=== PATIENT | female | born 1960 | race Caucasian/White ===

== ENCOUNTER 2016-08-12 13:39 | Emergency (ER) | payer OTHER ==
[2016-08-12 14:02] VITALS: BP 153/94
--- NOTE | 2016-08-12 14:18 | UC ---
Abdominal Pain Female HPI - HPI Summary HPI Summary: LOWER ABDOMINAL PAINX 2 DAYS , FEVER , FATIGUE, CHILLS, - History of Current Complaint Chief Complaint: UCGU Stated Complaint: URINARY COMPLAINT Time Seen by Provider: 08/12/16 13:50 Hx Obtained From: Patient Hx Last Menstrual Period: 5 years Onset/Duration: Gradual Onset, Lasting Days - 2, Still Present Timing: Constant Severity Initially: Moderate Severity Currently: Moderate Location: Suprapubic Radiates: Yes Radiates to: Back Character: Aching, Cramping Aggravating Factor(s): Nothing Alleviating Factor(s): Nothing Associated Signs and Symptoms: Positive: Fever, Back Pain, Decreased Appetite. Negative: Cough, Chest Pain, Dizzy, Constipation, Blood in Stool, Urinary Symptoms, Vaginal Bleeding, Vaginal Discharge, Nausea, Vomiting, Diarrhea Allergies/Adverse Reactions: Allergies Allergy/AdvReac Type Severity Reaction Status Date / Time Ceftriaxone [From Rocephin] Allergy Severe Anaphylatic Verified 08/12/16 14:02 Shock Glatiramer [From Copaxone] Allergy Anaphylatic Verified 08/12/16 14:02 Shock Mannitol [From Copaxone] Allergy Anaphylatic Verified 08/12/16 14:02 Shock NSAIDs AdvReac Severe CAN'T TAKE Verified 08/12/16 14:02 BECAUSE OF ULCERATIVE COLITIS Penicillins AdvReac Anaphylatic Verified 08/12/16 14:02 Shock [facility] Allergy Rash Uncoded 08/12/16 14:02 Home Medications: Home Medications Acetaminophen [Tylenol 8 Hour Arthritis] 1,300 mg PO ONCE PRN 08/12/16 [History Confirmed 08/12/16] Dronabinol [Marinol] 2.5 mg PO ONCE PRN 08/12/16 [History Confirmed 08/12/16] PMH/Surg Hx/FS Hx/Imm Hx Endocrine History Of: 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 Cardiovascular History Of: Denies: Hypertension, Pacemaker/ICD GI/ History Of: Reports: Gastrointestinal Bleed - due to UC Denies: Renal Disease - Surgical History Surgical History: Yes Surgery Procedure, Year, and Place: sinus surgery 2008; gallbladder 2004; lymph node bx 2007; [place] - Family History Known Family History: Positive: None, Other - [place] Lupus - Social History Alcohol Use: None Substance Use Type: None Substance Use Comment - Amount & Last Used: Butrans, Oxycodone and adderall Smoking Status (MU): Former Smoker Type: Cigarettes When Did the Patient Quit Smoking/Using Tobacco: As a teenager Review of Systems Constitutional: Fever, Chills, Fatigue Skin: Negative Eyes: Negative ENT: Negative Respiratory: Negative Cardiovascular: Negative Gastrointestinal: Abdominal Pain Genitourinary: Negative All Other Systems Reviewed And Are Negative: Yes Physical Exam Triage Information Reviewed: Yes Appearance: Well-Appearing, No Pain Distress, Well-Nourished Vital Signs: Initial Vital Signs Temp 98.4 F 08/12/16 13:49 Pulse 90 08/12/16 13:49 Resp 12 08/12/16 13:49 BP 153/94 08/12/16 13:49 Vital Signs Reviewed: Yes Eyes: Positive: Conjunctiva Clear ENT: Positive: Normal ENT inspection, Hearing grossly normal, Pharynx normal Neck: Positive: Supple, Nontender, No Lymphadenopathy Respiratory: Positive: Chest non-tender, Lungs clear, Normal breath sounds Cardiovascular: Positive: RRR, No Murmur, Pulses Normal Abdominal Exam: Normal Abdomen Description: Positive: Nontender, Soft, CVA Tenderness (L). Negative: CVA Tenderness (R), Distended, Guarding Bowel Sounds: Positive: Present Abd Pain Female Course/Dx - Differential Dx/Diagnosis Provider Diagnoses: LOWER ABDOMINAL PAIN Discharge - Discharge Plan Condition: Stable Disposition: HOME Prescriptions: Ciprofloxacin TAB* [Cipro Tab*] 500 mg PO BID #20 tab Patient Education Materials: Urinary Tract Infection in Women (ED) Referrals: Non Staff,Doctor [Primary Care Provider] -
== END 2016-08-12 14:40 | disposition home or self-care (01) ==
LOC: UCCORT 13:39
DX: R10.30 Lower abdominal pain, unspecified (principal); R50.9 Fever, unspecified; R53.83 Other fatigue; Z90.49 Acquired absence of other specified parts of digestive tract; Z88.6 Allergy status to analgesic agent; Z88.1 Allergy status to other antibiotic agents; Z88.8 Allergy status to other drugs, medicaments and biological substances; Z88.0 Allergy status to penicillin; Z87.891 Personal history of nicotine dependence
CPT/HCPCS: 87086; 99212; G0463

== ENCOUNTER 2017-07-24 14:08 | Emergency (ER) | payer OTHER ==
--- NOTE | 2017-07-24 14:10 | UC ---
Neck Pain HPI - HPI Summary HPI Summary: 57 year old female presents with neck and back pain. - History of Current Complaint Stated Complaint: BACK AND NECK PAIN Time Seen by Provider: 07/24/17 14:10 Hx Last Menstrual Period: 5 years - Allergies/Home Medications Allergies/Adverse Reactions: Allergies Allergy/AdvReac Type Severity Reaction Status Date / Time Ceftriaxone [From Rocephin] Allergy Severe Anaphylatic Verified 01/20/17 13:59 Shock Glatiramer [From Copaxone] Allergy Anaphylatic Verified 01/20/17 13:59 Shock Mannitol [From Copaxone] Allergy Anaphylatic Verified 01/20/17 13:59 Shock NSAIDs AdvReac Severe CAN'T TAKE Verified 01/20/17 13:59 BECAUSE OF ULCERATIVE COLITIS Penicillins AdvReac Anaphylatic Verified 01/20/17 13:59 Shock [facility] Allergy Rash Uncoded 01/07/17 07:05 PMH/Surg Hx/FS Hx/Imm Hx - Surgical History Surgical History: Yes Surgery Procedure, Year, and Place: sinus surgery 2008; gallbladder 2004; lymph node bx 2007; tonsillectomy 10/2012-[place] - Family History Known Family History: Positive: None, Other - [place] Lupus - Social History Alcohol Use: None Substance Use Type: None Substance Use Comment - Amount & Last Used: Butrans, Oxycodone and adderall Smoking Status (MU): Former Smoker Type: Cigarettes When Did the Patient Quit Smoking/Using Tobacco: As a teenager Review Of Systems Constitutional: Positive: Negative Skin: Positive: Negative Eyes: Positive: Negative ENT: Positive: Negative Respiratory: Positive: Negative Cardiovascular: Positive: Negative Gastrointestinal: Positive: Negative Genitourinary: Positive: Negative Musculoskeletal: Positive: Other: - low back and neck pain All Other Systems Reviewed And Are Negative: Yes Physical Exam Triage Information Reviewed: Yes Vital Signs Reviewed: Yes Eye Exam: Normal ENT Exam: Normal Dental Exam: Normal Neck exam: Normal Neck: Positive: 1 Respiratory Exam: Normal Cardiovascular Exam: Normal Abdominal Exam: Normal Musculoskeletal: Positive: Other: - low back pain neck pain Neurological Exam: Normal Psychological Exam: Normal Skin Exam: Normal Neck Pain Course/Dx - Differential Dx/Diagnosis Provider Diagnoses: low back pain. neck pain Discharge - Discharge Plan Condition: Stable Disposition: HOME Referrals: Peter Atkinson [Primary Care Provider] -
[2017-07-24 14:24] VITALS: BP 139/83
--- NOTE | 2017-07-27 08:34 | UC ---
Progress - Progress Note Progress Note: please call and inform pt of neg urine cx. ok to stop abx.
== END 2017-07-24 14:53 | disposition home or self-care (01) ==
LOC: UCCORT 14:08
DX: M54.5 Low back pain (principal); M54.2 Cervicalgia; Z88.3 Allergy status to other anti-infective agents; Z88.0 Allergy status to penicillin; Z87.891 Personal history of nicotine dependence
CPT/HCPCS: 81003; 87086; 99212; G0463

== ENCOUNTER 2019-07-02 10:39 | Emergency (ER) | payer BC ==
[2019-07-02 11:04] VITALS: BP 133/74
--- NOTE | 2019-07-02 13:42 | UC ---
Head Injury HPI - HPI Summary HPI Summary: Pt presents with c/o worsening bruising around left eye, SANTOS< nausea, sleep disturbances, and "strange dreams" s/p getting hit in face/head by piece of wood when pt was splitting wood on 06/28/19. Pt also reports that she had a bloody nose last night. She has recent moved into a house with a wood stove- 1 week ago. - History Of Current Complaint Chief Complaint: UCHeadInjury Stated Complaint: HEAD INJURY Time Seen by Provider: 07/02/19 12:23 Hx Obtained From: Patient Hx Last Menstrual Period: 5 years ?: No Onset/Duration: Sudden Onset, Worse Since - onset Severity Currently: Mild Severity Initially: Moderate Pain Intensity: 7 Character: Dull, Throbbing, Pressure Aggravating Factor(s): Other - movement and change in position Alleviating Factor(s): Nothing Associated Signs And Symptoms: Positive: Epistaxis, Nausea - Risk Factors SDH Risk Factor: Recent Trauma - Allergies/Home Medications Allergies/Adverse Reactions: Allergies Allergy/AdvReac Type Severity Reaction Status Date / Time ceftriaxone Allergy Anaphylatic Verified 07/02/19 11:09 Shock glatiramer (copolymer 1) Allergy Anaphylatic Verified 07/02/19 11:09 [From Copaxone] Shock NSAIDS (Non-Steroidal Allergy See Comment Verified 07/02/19 11:09 Anti-Inflamma Penicillins Allergy Anaphylatic Verified 07/02/19 11:09 Shock [facility] Allergy Rash Uncoded 07/02/19 11:10 Home Medications: Home Medications Acetaminophen [Acetaminophen Extra Strength] 1,500 mg PO BID PRN 07/02/19 [ History Confirmed 07/02/19] Bp Medication 1 tab PO DAILY 07/02/19 [History] Buprenorphine 5 MCG PATCH(NF) [Butrans 5 MCG PATCH(NF)] 7.5 mcg TRANSDERM Q7D [History Confirmed 07/02/19] Gabapentin CAP(*) [Neurontin 300 CAP(*)] 1,200 mg PO BEDTIME 07/02/19 [History Confirmed 07/02/19] Hormone Replacement 1 tab PO Q48HR 07/02/19 [History] Metoprolol Tartrate TAB* [Lopressor TAB*] 25 mg PO DAILY 07/02/19 [History Confirmed 07/02/19] Nortriptyline CAP* [Pamelor CAP*] 10 mg PO BEDTIME 07/02/19 [History Confirmed 07/02/19] PMH/Surg Hx/FS Hx/Imm Hx Previously Healthy: Yes Cardiovascular History: Cardiac Disease, Hypertension Psychological History: Anxiety, Depression - Surgical History Surgical History: Yes Surgery Procedure, Year, and Place: sinus surgery 2008; gallbladder 2004; lymph node bx 2007; tonsillectomy 10/2012-[place]. COLON BLEED-CLIPS 11/2017 - Family History Known Family History: Positive: None, Other - [place] Lupus - Social History Occupation: Disabled Lives: With Family Alcohol Use: None Substance Use Type: None Substance Use Comment - Amount & Last Used: Butrans, Oxycodone and adderall Smoking Status (MU): Former Smoker Type: Cigarettes Have You Smoked in the Last Year: No When Did the Patient Quit Smoking/Using Tobacco: As a teenager - Immunization History Most Recent Influenza Vaccination: no Review of Systems All Other Systems Reviewed And Are Negative: Yes Constitutional: Positive: Negative Skin: Positive: Bruising - around left eye Eyes: Positive: Negative ENT: Positive: Epistaxis - last night Respiratory: Positive: Negative Cardiovascular: Positive: Negative Gastrointestinal: Positive: Negative Genitourinary: Positive: Negative Motor: Positive: Negative Neurovascular: Positive: Negative Musculoskeletal: Positive: Negative Neurological: Positive: Headache Psychological: Positive: Negative Is Patient Immunocompromised?: No Physical Exam Triage Information Reviewed: Yes Appearance: Pain Distress Vital Signs: Initial Vital Signs Temp 97.9 F 07/02/19 10:57 Pulse 61 07/02/19 10:57 Resp 17 07/02/19 10:57 BP 133/74 07/02/19 10:57 Pulse Ox 100 07/02/19 10:57 Vital Signs Reviewed: Yes Eye Exam: Other - ecchymosis around left eye ENT Exam: Normal Dental Exam: Normal Neck exam: Normal Respiratory Exam: Normal Respiratory: Positive: No respiratory distress Musculoskeletal Exam: Normal Neurological Exam: Normal Neurological: Positive: Alert, Muscle Tone Normal Psychological Exam: Normal Skin Exam: Other - bruising around left eye Diagnostics - Radiology No standard instances Radiology Interpretation Completed By: Radiologist - negative for fracture and active disease, reviewed. Head Injury Course/Dx - Differential Dx/Diagnosis Differential Diagnosis/HQI/PQRI: Concussion Without LOC, Contusion, Hematoma, Orbital Fracture Provider Diagnosis: Facial contusion Discharge ED - Sign-Out/Discharge Documenting (check all that apply): Patient Departure All imaging exams completed and their final reports reviewed: Yes - Discharge Plan Condition: Stable Disposition: HOME Patient Education Materials: Acute Headache (ED), Facial Contusion (ED) Referrals: [facility] [place] [facility] [Outside] - If Needed No Primary Care Phys,NOPCP [Primary Care Provider] - Additional Instructions: Please follow up with your PCP as needed. If your symptoms do not improve or worsen, please seek medical attention immediately at the closest emergency room. - Billing Disposition and Condition Condition: STABLE Disposition: Home
== END 2019-07-02 13:58 | disposition home or self-care (01) ==
LOC: UCCORT 10:39
DX: S00.12XA Contusion of left eyelid and periocular area, initial encounter (principal); I10 Essential (primary) hypertension; F41.9 Anxiety disorder, unspecified; F32.9 Major depressive disorder, single episode, unspecified; Z88.6 Allergy status to analgesic agent; Z91.09 Other allergy status, other than to drugs and biological substances; Z88.8 Allergy status to other drugs, medicaments and biological substances; Z79.899 Other long term (current) drug therapy; Z87.891 Personal history of nicotine dependence; Z88.0 Allergy status to penicillin; Z82.49 Family history of ischemic heart disease and other diseases of the circulatory system; W22.8XXA Striking against or struck by other objects, initial encounter; Y93.89 Activity, other specified; Y92.9 Unspecified place or not applicable
CPT/HCPCS: 70450; 70486; 99212; G0463